=== PATIENT | female | born 1960 | race Caucasian/White ===

== ENCOUNTER 2017-12-03 14:51 | Inpatient (IN) ==
[2017-12-03 16:30] LABS: Basophils # 0.1 10*3/uL (0.0-0.2); Basophils % 0.9 % (0.0-0.8); Eosinophils # 0.1 10*3/uL (0.0-0.87); Eosinophils % 1.1 % (0.00-10.9); Hematocrit 37.3 VOL% (35.7-47.0); Hemoglobin 12.3 GM/DL (12.0-16.0); Immature Granulocytes % 1.5 %; Immature Granulocytes Absolute 0.18 #; Lymphocytes # 2.1 10*3/uL (1.4-4.0); Lymphocytes % 18.2 % (21.3-54.2); Mean Corpuscular Hemoglobin 30 PG (27-34); Mean Corpuscular Volume 91.9 FL (87-102); Mean Platelet Volume 9.9 FL (9.6-12.0); Monocytes # 0.7 10*3/uL (0.11-0.8); Monocytes % 5.8 % (1.7-12.7); Neutrophils # 8.5 10*3/uL (1.4-7.4); Neutrophils % 72.5 % (38.7-73.9); Platelet Count 237 T/CUMM (130-400); Red Blood Count 4.06 MC/CUMM (3.8-5.5); Red Cell Distribution Width 13.9 % (9.3-17.3); White Blood Count 11.7 T/CUMM (4-12)
[2017-12-03] MEDS ORDERED: MORPHINE 4 MG/1 ML VIAL IV STA (16:39)
[2017-12-03 16:52] LABS: PT Patient Result 10.7 SECS; Partial Thromboplastin Time 25.3 SECS (0-40)
[2017-12-03 16:54] LABS: Alanine Aminotransferase 23 U/L (13-56); Albumin 3.7 G/DL (3.4-5.0); Alkaline Phosphatase 70 U/L (45-117); Aspartate Amino Transferase 19 U/L (0-37); Bilirubin,Total < 0.39 MG/DL (0.2-1.0); Blood Urea Nitrogen 20 MG/DL (7-18); Calcium 8.6 MG/DL (8.5-10.1); Glucose 132 MG/DL (74-106); Osmolality,Calculated 281.5 MOS/KG (273-304); Potassium 3.5 MMOL/L (3.5-5.1); Sodium 139 MMOL/L (136-145); Total Protein 6.9 G/DL (6.4-8.3)
[2017-12-03] MEDS ORDERED: ONDANSETRON 4 MG/2 ML VIAL IV PRN (18:15)
[2017-12-03] MEDS ORDERED: MAGNESIUM HYDROXIDE SUSP 30 ML UDCUP PO PRN (18:15)
[2017-12-03] MEDS ORDERED: LEVOFLOXACIN INJ 500 MG in PREMIX 1 EACH IV STA (18:15)
[2017-12-03] MEDS ORDERED: MORPHINE 4 MG/1 ML VIAL IV PRN (18:15)
[2017-12-03] MEDS: HYDROmorphone 2 MG/1 ML VIAL IV PRN ×2 (19:38→23:37)
[2017-12-03] MEDS: DEXTROSE 5% NACL 0.45% 1,000 ML IV SCH (21:20)
[2017-12-03] MEDS: PREGABALIN 75 MG CAPSULE PO SCH (21:21)
[2017-12-03 23:33] LABS: Apearance,Urine CLEAR (Clear); Bilirubin,Urine Negative (Negative); Blood, Urine Moderate mg/dL (Negative); Glucose,Urine (UA) Negative (Negative); Ketones,Urine Negative (Negative); Nitrite,Urine Negative (Negative); Protein,Urine Negative; RBC,Urine 2 /HPF (0-4); Urine Color Straw (Yellow); Urine Specific Gravity 1.006 (1.001-1.035); Urine Urobilinogen < 2.0 EU/DL (0.2-1.0); WBC,Urine 3 /HPF (0-6)
[2017-12-04 00:06] LABS: Eosinophils 2 % (0-10); Lymphocytes 15 % (20-55); Platelet Estimate Normal; Segmented Neutrophils 81 % (50-85); Total Cells Counted 100
[2017-12-04] MEDS: HYDROmorphone 2 MG/1 ML VIAL IV PRN ×2 (03:31→09:23)
[2017-12-04 06:56] LABS: Basophils # 0.1 10*3/uL (0.0-0.2); Basophils % 0.7 % (0.0-0.8); Eosinophils # 0.1 10*3/uL (0.0-0.87); Eosinophils % 0.6 % (0.00-10.9); Hematocrit 37.2 VOL% (35.7-47.0); Hemoglobin 11.9 GM/DL (12.0-16.0); Immature Granulocytes % 0.6 %; Immature Granulocytes Absolute 0.06 #; Lymphocytes # 1.6 10*3/uL (1.4-4.0); Lymphocytes % 14.8 % (21.3-54.2); Mean Corpuscular Hemoglobin 29 PG (27-34); Mean Corpuscular Volume 91.4 FL (87-102); Mean Platelet Volume 10.3 FL (9.6-12.0); Monocytes # 0.9 10*3/uL (0.11-0.8); Monocytes % 7.9 % (1.7-12.7); Neutrophils # 8.1 10*3/uL (1.4-7.4); Neutrophils % 75.4 % (38.7-73.9); Platelet Count 207 T/CUMM (130-400); Red Blood Count 4.07 MC/CUMM (3.8-5.5); Red Cell Distribution Width 13.8 % (9.3-17.3); White Blood Count 10.8 T/CUMM (4-12)
[2017-12-04] MEDS: DEXTROSE 5% NACL 0.45% 1,000 ML IV SCH (07:07)
[2017-12-04 07:21] LABS: Calcium 8.2 MG/DL (8.5-10.1); Potassium 3.4 MMOL/L (3.5-5.1)
[2017-12-04 07:27] LABS: Risk Ratio 2.69; VLDL CHOLESTEROL 14.4 MG/DL
[2017-12-04] MEDS: PREGABALIN 75 MG CAPSULE PO SCH ×2 (09:26→21:26)
[2017-12-04] MEDS: PANTOPRAZOLE 40 MG TABLET PO SCH (09:27)
[2017-12-04] MEDS: LISINOPRIL 10 MG TABLET PO SCH (09:27)
[2017-12-04] MEDS: NICOTINE 21 MG/24 HR PATCH TRANSDERM SCH (09:27)
[2017-12-04] MEDS: PRAVASTATIN 20 MG TABLET PO SCH (09:27)
[2017-12-04] MEDS ORDERED: POTASSIUM CHLORIDE 20 MEQ TABLET PO ONE (10:16)
[2017-12-04] MEDS ORDERED: ceFAZolin 1,000 MG in SYRINGE 1 EACH IV ONE (11:30)
[2017-12-04] MEDS: LACTATED RINGERS 1,000 ML IV SCH ×4 (12:45→21:19)
[2017-12-04] MEDS ORDERED: BACITRACIN OINT 0.9 GM PACK TOP ONE (14:35)
[2017-12-04] MEDS ORDERED: NEOMYCIN/POLYMYXIN/BACITRACIN OINT 28.4 GM TUBE TOP ONE (14:36)
[2017-12-04] MEDS ORDERED: LIDOCAINE 1% 5 ML VIAL ONE (15:02)
[2017-12-04] MEDS ORDERED: SEVOFLURANE 1 UNIT/15 MINUTE INH ONE (15:02)
[2017-12-04] MEDS ORDERED: PROPOFOL 200 MG/20 ML VIAL IV ONE (15:02)
[2017-12-04] MEDS ORDERED: LACTATED RINGERS 1,000 ML IV ONE (15:03)
[2017-12-04] MEDS ORDERED: DEXAMETHASONE 10 MG/1 ML VIAL ONE (15:03)
[2017-12-04] MEDS ORDERED: KETOROLAC 30 MG/1 ML VIAL ONE (15:03)
[2017-12-04] MEDS ORDERED: ACETAMINOPHEN 1,000 MG/100 ML VIAL IV ONE (15:03)
[2017-12-04] MEDS ORDERED: MIDAZOLAM 2 MG/2 ML VIAL ONE (15:03)
[2017-12-04] MEDS ORDERED: ONDANSETRON 4 MG/2 ML VIAL ONE (15:03)
[2017-12-04] MEDS ORDERED: KETAMINE 500 MG/10 ML VIAL ONE (15:03)
[2017-12-04] MEDS ORDERED: fentaNYL 100 MCG/2 ML VIAL ONE (15:03)
[2017-12-04] MEDS ORDERED: SUCCINYLCHOLINE 200 MG/10 ML VIAL ONE (15:04)
[2017-12-04] MEDS ORDERED: ROCURONIUM 100 MG/10 ML VIAL IV ONE (15:04)
[2017-12-04] MEDS ORDERED: diphenhydrAMINE CAP 25 MG CAPSULE PO PRN (15:07)
[2017-12-04] MEDS ORDERED: MAGNESIUM HYDROXIDE SUSP 30 ML UDCUP PO PRN (15:07)
[2017-12-04] MEDS ORDERED: ZALEPLON 5 MG CAPSULE PO PRN (15:07)
[2017-12-04] MEDS ORDERED: oxyCODONE IR 5 MG TABLET PO PRN ×2 (15:07)
[2017-12-04] MEDS: ceFAZolin 1,000 MG in SYRINGE 1 EACH IV SCH (21:21)
[2017-12-04] MEDS: ACETAMINOPHEN 500 MG TABLET PO SCH (21:24)
[2017-12-04] MEDS: KETOROLAC 30 MG/1 ML VIAL IV SCH (21:25)
[2017-12-04] MEDS: DOCUSATE SODIUM 100 MG CAPSULE PO SCH (21:26)
[2017-12-04] MEDS: LEVOFLOXACIN INJ 500 MG in PREMIX 1 EACH IV SCH (21:27)
[2017-12-05] MEDS: ACETAMINOPHEN 500 MG TABLET PO SCH ×3 (03:05→15:22)
[2017-12-05] MEDS: KETOROLAC 30 MG/1 ML VIAL IV SCH ×3 (03:06→15:21)
[2017-12-05 04:08] LABS: Basophils % 0.2 % (0.0-0.8); Hematocrit 29.3 VOL% (35.7-47.0); Hemoglobin 9.6 GM/DL (12.0-16.0); Immature Granulocytes % 0.8 %; Lymphocytes # 1.4 10*3/uL (1.4-4.0); Mean Corpuscular HGB Conc 32.8 GM/DL (32-36); Mean Corpuscular Hemoglobin 30 PG (27-34); Mean Corpuscular Volume 92.7 FL (87-102); Mean Platelet Volume 10.5 FL (9.6-12.0); Monocytes # 1.2 10*3/uL (0.11-0.8); Monocytes % 9.4 % (1.7-12.7); Neutrophils # 9.8 10*3/uL (1.4-7.4); Neutrophils % 78.6 % (38.7-73.9); Platelet Count 164 T/CUMM (130-400); Red Blood Count 3.16 MC/CUMM (3.8-5.5); White Blood Count 12.5 T/CUMM (4-12)
[2017-12-05 04:35] LABS: Calcium 7.7 MG/DL (8.5-10.1); Osmolality,Calculated 281.4 MOS/KG (273-304)
[2017-12-05] MEDS: ceFAZolin 1,000 MG in SYRINGE 1 EACH IV SCH (05:07)
[2017-12-05] MEDS: LACTATED RINGERS 1,000 ML IV SCH (07:06)
[2017-12-05] MEDS: PANTOPRAZOLE 40 MG TABLET PO SCH (09:02)
[2017-12-05] MEDS: PREGABALIN 75 MG CAPSULE PO SCH ×2 (09:02→20:29)
[2017-12-05] MEDS: FONDAPARINUX 2.5 MG/0.5 ML SYRINGE SUBCUT SCH (09:02)
[2017-12-05] MEDS: PRAVASTATIN 20 MG TABLET PO SCH (09:02)
[2017-12-05] MEDS: DOCUSATE SODIUM 100 MG CAPSULE PO SCH ×2 (09:03→20:29)
[2017-12-05] MEDS: NICOTINE 21 MG/24 HR PATCH TRANSDERM SCH (09:03)
[2017-12-05] MEDS: LISINOPRIL 10 MG TABLET PO SCH (09:05)
[2017-12-05] MEDS: LEVOFLOXACIN INJ 500 MG in PREMIX 1 EACH IV SCH (20:30)
[2017-12-06 04:36] LABS: Basophils # 0.1 10*3/uL (0.0-0.2); Basophils % 0.7 % (0.0-0.8); Eosinophils # 0.4 10*3/uL (0.0-0.87); Eosinophils % 3.5 % (0.00-10.9); Hematocrit 24.4 VOL% (35.7-47.0); Hemoglobin 8.2 GM/DL (12.0-16.0); Immature Granulocytes % 0.3 %; Immature Granulocytes Absolute 0.03 #; Lymphocytes # 3.1 10*3/uL (1.4-4.0); Mean Corpuscular HGB Conc 33.6 GM/DL (32-36); Mean Corpuscular Hemoglobin 31 PG (27-34); Mean Corpuscular Volume 90.7 FL (87-102); Monocytes # 1.1 10*3/uL (0.11-0.8); Monocytes % 9.9 % (1.7-12.7); Neutrophils # 6.1 10*3/uL (1.4-7.4); Neutrophils % 56.6 % (38.7-73.9); Platelet Count 165 T/CUMM (130-400); Red Blood Count 2.69 MC/CUMM (3.8-5.5); Red Cell Distribution Width 14.5 % (9.3-17.3); White Blood Count 10.7 T/CUMM (4-12)
[2017-12-06 05:10] LABS: Calcium 7.7 MG/DL (8.5-10.1); Osmolality,Calculated 288.8 MOS/KG (273-304); Potassium 4.2 MMOL/L (3.5-5.1)
[2017-12-06] MEDS: FONDAPARINUX 2.5 MG/0.5 ML SYRINGE SUBCUT SCH (09:25)
[2017-12-06] MEDS: PREGABALIN 75 MG CAPSULE PO SCH ×2 (09:26→20:25)
[2017-12-06] MEDS: NICOTINE 21 MG/24 HR PATCH TRANSDERM SCH (09:26)
[2017-12-06] MEDS: PANTOPRAZOLE 40 MG TABLET PO SCH (09:26)
[2017-12-06] MEDS: PRAVASTATIN 20 MG TABLET PO SCH (09:26)
[2017-12-06] MEDS: LISINOPRIL 5 MG TABLET PO SCH (09:26)
[2017-12-06] MEDS: DOCUSATE SODIUM 100 MG CAPSULE PO SCH ×2 (09:27→20:25)
[2017-12-06] MEDS: MORPHINE 4 MG/1 ML VIAL IV PRN ×2 (14:02→16:49)
[2017-12-06] MEDS: LEVOFLOXACIN INJ 500 MG in PREMIX 1 EACH IV SCH (20:26)
[2017-12-07 07:36] LABS: Basophils # 0.1 10*3/uL (0.0-0.2); Basophils % 0.9 % (0.0-0.8); Eosinophils # 0.5 10*3/uL (0.0-0.87); Eosinophils % 4.6 % (0.00-10.9); Hemoglobin 8.4 GM/DL (12.0-16.0); Immature Granulocytes % 0.5 %; Immature Granulocytes Absolute 0.05 #; Lymphocytes # 3.2 10*3/uL (1.4-4.0); Lymphocytes % 30.8 % (21.3-54.2); Mean Corpuscular HGB Conc 32.3 GM/DL (32-36); Mean Corpuscular Hemoglobin 30 PG (27-34); Mean Corpuscular Volume 92.5 FL (87-102); Mean Platelet Volume 10.4 FL (9.6-12.0); Monocytes % 9.7 % (1.7-12.7); Neutrophils # 5.6 10*3/uL (1.4-7.4); Neutrophils % 53.5 % (38.7-73.9); Platelet Count 191 T/CUMM (130-400); Red Blood Count 2.81 MC/CUMM (3.8-5.5); Red Cell Distribution Width 14.4 % (9.3-17.3); White Blood Count 10.5 T/CUMM (4-12)
[2017-12-07 07:38] VITALS: BP 99/62
[2017-12-07] MEDS: PRAVASTATIN 20 MG TABLET PO SCH (08:10)
[2017-12-07] MEDS: DOCUSATE SODIUM 100 MG CAPSULE PO SCH (08:10)
[2017-12-07] MEDS: PANTOPRAZOLE 40 MG TABLET PO SCH (08:10)
[2017-12-07] MEDS: NICOTINE 21 MG/24 HR PATCH TRANSDERM SCH (08:16)
[2017-12-07] MEDS: FONDAPARINUX 2.5 MG/0.5 ML SYRINGE SUBCUT SCH (08:17)
[2017-12-07] MEDS: PREGABALIN 75 MG CAPSULE PO SCH (08:18)
[2017-12-07] MEDS: LISINOPRIL 5 MG TABLET PO SCH (08:18)
== END 2017-12-07 11:00 | disposition home health service (06) | DRG 480 ==
LOC: EDBD → EDUNIT# → N.ED 14:51 → N.EDINP 14:51 → SUATTDRO 16:51 → N.3E 18:09
PROVIDERS: ADMIT Family Medicine; ATTEND Orthopaedic Surgery